=== PATIENT | female | born 1995 | race Caucasian/White ===

== ENCOUNTER 2022-05-27 12:35 | Emergency (ER) | payer OTHER ==
[~2022-05-27] VITALS: Ht 149.9 cm; Wt 48.1 kg
[2022-05-27] MEDS ORDERED: ONDANSETRON ODT8 MG PO (17:58)
[2022-05-27] MEDS ORDERED: MACRODANTIN100 M1 PO (17:58)
== END 2022-05-27 18:18 | disposition home or self-care (01) ==
LOC: ER 12:35
DX: O21.0 Mild hyperemesis gravidarum (principal); Z3A.14 14 weeks gestation of pregnancy

== ENCOUNTER 2022-05-31 14:54 | Emergency (ER) | payer OTHER ==
[~2022-05-31] VITALS: Ht 149.9 cm; Wt 48.1 kg
[~2022-05-31 14:54] MED LIST: MACRODANTIN100 M1 PO; ONDANSETRON ODT8 MG PO
[2022-05-31] MEDS ORDERED: METOCLOPRAMIDE10 MG PO (17:41)
== END 2022-05-31 18:03 | disposition home or self-care (01) ==
LOC: ER 14:54
DX: O21.0 Mild hyperemesis gravidarum (principal); Z3A.14 14 weeks gestation of pregnancy

== ENCOUNTER 2022-06-20 15:23 | Emergency (ER) | payer OTHER ==
[~2022-06-20] VITALS: Ht 149.9 cm; Wt 49.0 kg
[~2022-06-20 15:23] MED LIST changes: +METOCLOPRAMIDE10 MG PO
== END 2022-06-20 21:32 | disposition home or self-care (01) ==
LOC: ER 15:23
DX: O99.612 Diseases of the digestive system complicating pregnancy, second trimester (principal); K92.89 Other specified diseases of the digestive system; K59.00 Constipation, unspecified; Z3A.17 17 weeks gestation of pregnancy

== ENCOUNTER 2022-09-01 16:45 | Outpatient (CLI) | payer OTHER | END 2022-09-02 18:07 | disposition home or self-care (01) | LOC: OBS/DEL 16:45 | PROVIDERS: ATTEND Specialist | DX: O23.592 Infection of other part of genital tract in pregnancy, second trimester (principal); O99.012 Anemia complicating pregnancy, second trimester; Z3A.27 27 weeks gestation of pregnancy ==

== ENCOUNTER 2022-09-28 14:07 | Emergency (ER) | payer OTHER ==
[~2022-09-28] VITALS: Ht 149.9 cm; Wt 54.0 kg
[2022-09-28] MEDS ORDERED: IRON236 MG (16:05)
[2022-09-28] MEDS ORDERED: [UNRECOGNIZED DRUG - OTHER] (16:06)
== END 2022-09-28 18:05 | disposition home or self-care (01) ==
LOC: ER 14:07
DX: O99.513 Diseases of the respiratory system complicating pregnancy, third trimester (principal); J06.9 Acute upper respiratory infection, unspecified; Z3A.30 30 weeks gestation of pregnancy; Z20.822 Contact with and (suspected) exposure to COVID-19

== ENCOUNTER 2022-09-30 07:07 | Outpatient (CLI) | payer OTHER ==
[~2022-09-30 07:07] MED LIST changes: +IRON236 MG; +[UNRECOGNIZED DRUG - OTHER]
[2022-09-30] MEDS ORDERED: ZOFRAN8 MG PO (07:30)
[2022-09-30] MEDS ORDERED: PRENATAL CAPLE1 EAC1 PO (07:31)
== END 2022-09-30 20:58 | disposition home or self-care (01) ==
LOC: OBS/DEL 07:07
PROVIDERS: ATTEND Specialist
DX: O23.33 Infections of other parts of urinary tract in pregnancy, third trimester (principal); N39.0 Urinary tract infection, site not specified; Z3A.31 31 weeks gestation of pregnancy

== ENCOUNTER 2022-11-10 17:35 | Outpatient (CLI) | payer OTHER ==
[~2022-11-10 17:35] MED LIST changes: +PRENATAL CAPLE1 EAC1 PO; +ZOFRAN8 MG PO
== END 2022-11-11 14:16 | disposition home or self-care (01) ==
LOC: OBS/DEL 17:35
PROVIDERS: ATTEND Specialist
DX: O26.893 Other specified pregnancy related conditions, third trimester (principal); R10.2 Pelvic and perineal pain; Z3A.37 37 weeks gestation of pregnancy

== ENCOUNTER 2022-11-29 05:48 | Inpatient (IN) | payer OTHER ==
[~2022-11-29] VITALS: Ht 149.9 cm; Wt 59.9 kg
[2022-12-01] MEDS ORDERED: IBU800 MG PO (13:27)
[2022-12-01] MEDS ORDERED: SIMETHICONE80 MG PO (13:38)
[2022-12-01] MEDS ORDERED: COLACE100 MG PO (13:38)
== END 2022-12-01 14:05 | disposition home or self-care (01) | DRG 788 ==
LOC: OB/GYN 05:48 → LDR 05:48 → O/R 19:13 → OB/GYN 21:46
PROVIDERS: ADMIT Specialist; ATTEND Specialist
PROC: 3E033VJ Introduction of Other Hormone into Peripheral Vein, Percutaneous Approach (ICD-10-PCS; 2022-11-29)
PROC: 3E0P7VZ Introduction of Hormone into Female Reproductive, Via Natural or Artificial Opening (ICD-10-PCS; 2022-11-29)
PROC: 4A1HXCZ Monitoring of Products of Conception, Cardiac Rate, External Approach (ICD-10-PCS; 2022-11-29)
PROC: 10D00Z1 Extraction of Products of Conception, Low, Open Approach (ICD-10-PCS; principal; 2022-11-29 19:00)
DX: O82 Encounter for cesarean delivery without indication (principal); O99.824 Streptococcus B carrier state complicating childbirth; Z3A.39 39 weeks gestation of pregnancy; Z37.0 Single live birth; Z20.822 Contact with and (suspected) exposure to COVID-19